=== PATIENT | male | born 1985 | race Caucasian/White ===

== ENCOUNTER 2017-04-22 08:56 | Day surgery (SDC) | payer BC, OTHER ==
[~2017-04-22 08:56] MED LIST: Bacitracin Oint 1 GM U/D Packet ONE; Lidocaine 1% with EPINEPHrine 1:100,000 50 ML MDV ONE; Midazolam 1 MG/ML 2 ML SDV ONE; Mineral Oil 10 ML Bottle ONE; Propofol 200 MG/20 ML SDV ONE; fentaNYL 100 MCG/2 ML SDV ONE
[2017-04-22] MEDS ORDERED: ceFAZolin 2 GM in Sodium Chloride 0.9% 50 ML IV ONE (09:30)
[2017-04-22] MEDS ORDERED: Sodium Chloride 0.9% 1,000 ML IV SCH (09:30)
[2017-04-22] MEDS ORDERED: Succinylcholine 200 MG/10 ML MDV ONE (10:34)
[2017-04-22] MEDS ORDERED: Dexamethasone 4 MG/ML SDV ONE (10:34)
[2017-04-22] MEDS ORDERED: Rocuronium 50 MG/5 ML Vial ONE (10:34)
[2017-04-22] MEDS ORDERED: Ondansetron 4 MG/2 ML SDV ONE (10:34)
[2017-04-22] MEDS ORDERED: Neostigmine Methylsulfate 1 MG/ML 5 ML Syringe ONE (10:34)
[2017-04-22] MEDS ORDERED: Glycopyrrolate 0.2 MG/ML 5 ML MDV ONE (10:34)
[2017-04-22] MEDS ORDERED: fentaNYL 100 MCG/2 ML SDV ONE (11:29)
[2017-04-22] MEDS ORDERED: Benzocaine/Cetylpyridinium/Menthol Lozenge MUCMEM PRN (12:36)
[2017-04-22] MEDS ORDERED: fentaNYL 100 MCG/2 ML SDV IVPUSH PRN (12:36)
[2017-04-22] MEDS ORDERED: Zolpidem 5 MG Tab PO PRN (12:36)
[2017-04-22] MEDS ORDERED: Acetaminophen/oxyCODONE 325-10 MG Tab PO PRN (12:36)
[2017-04-22] MEDS ORDERED: hydrOXYzine HCl 100 MG/2 ML SDV IM PRN (12:36)
[2017-04-22] MEDS ORDERED: diphenhydrAMINE 50 MG/ML SDV IVPUSH PRN (12:36)
[2017-04-22] MEDS ORDERED: Ketorolac 30 MG/ML SDV IVPUSH PRN (12:44)
--- NOTE | 2017-04-25 07:49 | OR ---
DATE OF PROCEDURE: 04/22/2017 PROCEDURE: 1. Surgical preparation of right wound, right thigh, 8 cm x 6.10 cm (72426). 2. Split-thickness skin graft, right thigh, dimensions as above (80385). COMPLICATIONS: None. SALES AND SERVICE ADVISOR: None. ANESTHESIA: General/local. INDICATIONS: A pleasant 31-year-old male who I have seen 7 months ago and recommended a skin graft. The patient logistically was unable to complete this until recently. He was now reviewed. The risks, benefits, alternatives, limitations, including but not limited to infection, bleeding, injury to structures, wound failure, graft failure, and other risks not listed here. He understands these risks and wished to proceed. PROCEDURE IN DETAIL: The patient was prepped and draped in supine position. Using a Weck blade set at 10,000 steps, the recipient site was surgically prepared by using that blade to surgically remove the eschar. Direct pressure, along with lidocaine, was used to control hemostasis at that site. Directly above this, the donor site would be selected. This was obviously the right thigh. This would be measured out to be approximately 7 x 5 cm. This was prepped with some mineral oil. The dermatome was set to 15,000 steps, and the graft was harvested. Lidocaine soaked with epinephrine was used to control this bleeding site. The skin was placed on the carrier immediately, and it was not dropped or orientation was not lost. This was meshed in a 1.5 to 1 manner. This was then hand sewn with chromic fast dissolving sutures, once hemostasis was achieved. These sutures were approximately 5 mm and in the middle aspects also. Bolster type dressings were then applied to the recipient site, creating gentle abdominal pressure, covered with Xeroform, Robert, and Kerlix. A clear Tegaderm was used to cover the donor site. The patient tolerated the procedure well. Harman Vizcaino MD /[id number]
== END 2017-04-22 16:32 | disposition home or self-care (01) ==
LOC: JP.SDS 08:56
PROVIDERS: ATTEND Surgery
DX: S81.801A Unspecified open wound, right lower leg, initial encounter (principal); F17.210 Nicotine dependence, cigarettes, uncomplicated; X58.XXXA Exposure to other specified factors, initial encounter
CPT/HCPCS: 15002; 15100; A9270; C1762; J0330; J0690; J1100; J1885; J2250; J2405; J2704; J2710; J3010; J3410; J7040; J7050

== ENCOUNTER 2017-06-14 05:58 | Day surgery (SDC) | payer OTHER ==
[2017-06-14] MEDS ORDERED: Lidocaine 1% with EPINEPHrine 1:100,000 50 ML MDV ONE (06:54)
[2017-06-14] MEDS ORDERED: Bupivacaine 0.5% 50 ML MDV ONE (06:54)
[2017-06-14] MEDS ORDERED: Sodium Chloride 0.9% 1,000 ML IV SCH (07:00)
[2017-06-14] MEDS ORDERED: Propofol 200 MG/20 ML SDV ONE ×3 (07:26→08:10)
[2017-06-14] MEDS ORDERED: fentaNYL 100 MCG/2 ML SDV ONE ×2 (07:26→08:21)
[2017-06-14] MEDS ORDERED: Midazolam 1 MG/ML 2 ML SDV ONE (07:26)
[2017-06-14] MEDS ORDERED: Ketorolac 60 MG/2 ML SDV ONE (08:10)
[2017-06-14] MEDS ORDERED: Bacitracin Oint 1 GM U/D Packet ONE (08:12)
[2017-06-14] MEDS ORDERED: Morphine 2 MG/ML Syringe IVPUSH PRN (09:30)
--- NOTE | 2017-07-29 09:01 | OR ---
DATE OF PROCEDURE: 06/14/2017 PROCEDURE: Rotational flap, right thigh. FINDINGS: Extensive tunneling and inflammation of the wound noted. COMPLICATIONS: None. DIRECTOR OF DEMENTIA OPERATIONS: None. ANESTHESIA: MAC/local. INDICATIONS: A 31-year-old male with a chronic wound in his right leg of unknown etiology. This was biopsied and was not found to contain any malignancy. This has been completely refractory to all other previous treatments, including skin graft, nonoperative therapy, wound VAC, and other modalities. RISKS: Risks, benefits, alternatives, limitations including, but not limited to infection, bleeding, chronic wound formation, requirement for reoperation, scar formation, and other risks not listed here were explained to the patient, who wished to proceed. PROCEDURE IN DETAIL: The patient was placed in supine position, was prepped and draped. The wound was readily identified. This is about 6 cm x 4 cm. The wound itself was measured, and originally the plan was to do simple excision. The patient had a significantly large amount of tension on the skin. Therefore, this was modified intraoperatively, due to the high skin tension, to an O-to-Z type flap. This allowed the skin to be rotated and completely close this defect. This was marked off in the standard fashion. This O-to-Z flap was used in the classic configuration with undermining, as is typical. This had an intermediate angle of about 67 degrees. This was then excised and sutured in with horizontal mattress sutures with respect to the skin. However, this was closed subcutaneously with 0 Vicryl sutures and bolstered with zahra. Dressings were applied. The patient tolerated the procedure well. Of note, this is a re-dictation and may be prone to dictation errors. Harman Vizcaino MD /[id number]
== END 2017-06-14 10:30 | disposition home or self-care (01) ==
LOC: JP.SDS 05:58
PROVIDERS: ATTEND Surgery
DX: L97.119 Non-pressure chronic ulcer of right thigh with unspecified severity (principal)
CPT/HCPCS: 14021; 88305; J1885; J2250; J2270; J2704; J3010; J7040